=== PATIENT | female | born 1950 | race Caucasian/White ===

== ENCOUNTER 2023-09-07 16:45 | Inpatient (IN) | payer OTHER ==
[~2023-09-07] VITALS: Ht 160 cm; Wt 75.7 kg
[2023-09-07 16:52] VITALS: BP 118/51; PULSE 106; RESP 18; TEMP 98; O2SAT 97
[2023-09-07] MEDS: NACL 0.9% 1,000 ML IV SCH ×2 (17:48→20:00)
[2023-09-07 17:53] LABS: BASOPHILS % (AUTO) 0.4 % (0.0-2.0); EOSINOPHILS % (AUTO) 0.1 % (0.0-4.0); HEMATOCRIT 32.9 % (36-48); HEMOGLOBIN 11.5 g/dL (12.0-16.0); LYMPHOCYTES % (AUTO) 8.3 % (20.5-51.1); MEAN CORPUSCULAR HEMOGLOBIN 31 pg (27-31); MEAN CORPUSCULAR HGB CONC 35 g/dL (33-37); MONOCYTES # (AUTO) 1.2 K/uL (0.8-1.0); MONOCYTES % (AUTO) 9.8 % (1.7-9.3); NEUTROPHILS % (AUTO) 81.4 % (42.2-75.2); PLATELET COUNT (AUTO) 165 K/uL (140-450); RED BLOOD CELL COUNT(AUTO) 3.74 MIL/uL (4.20-5.40); RED CELL DISTRIBUTION WIDTH 12.7 % (11.6-13.7); WHITE BLOOD COUNT (AUTO) 12.2 K/uL (4.8-10.8)
[2023-09-07 18:04] LABS: CALCIUM 8.8 mg/dL (8.5-10.1); CARBON DIOXIDE 26.6 mmol/L (21-32); CHLORIDE 82 mmol/L (98-107); CREATININE 1.3 mg/dL (0.6-1.3); GLUCOSE 236 mg/dL (74-106); UREA NITROGEN, BLOOD 21 mg/dL (7-18)
[2023-09-07 18:06] LABS: POTASSIUM 2.6 mmol/L (3.5-5.1); SODIUM SERUM 119 mmol/L (136-145)
[2023-09-07] MEDS: KETOROLAC 30 MG/ML VIAL IVP ONE (18:29)
[2023-09-07] MEDS: POTASSIUM CHLORIDE 10 MEQ TABER PO ONE (18:48)
[2023-09-07 19:08] LABS: APPEARANCE,URINE CLEAR (CLEAR); BILIRUBIN,URINE NEGATIVE (NEGATIVE); BLOOD, URINE 2+ (NEGATIVE); COLOR,URINE YELLOW (YELLOW); LEUKOCYTE ESTERASE ,URINE 1+ (NEGATIVE); NITRITE, URINE NEGATIVE (NEGATIVE); PROTEIN,URINE TRACE (NEGATIVE); UGLUCOSE 1+ (NEGATIVE); UROBILINOGEN,URINE 0.2 EU/dL (0.2 - 1)
[2023-09-07 19:14] LABS: BACTERIA,URINE >30 (MANY) /HPF (None Seen); RBC,URINE 0-5 /HPF (0-5); WBC,URINE >25 (MANY) /HPF (0-5)
[2023-09-07 19:15] LABS: MUCUS,URINE None Seen /LPF (None Seen); SQUAMOUS EPITHELIAL CELL,UR 4-10 (MOD) /LPF (0-3 (FEW))
[2023-09-07] MEDS ORDERED: MAG SULF 2000 MG/WATER PREMIX 50 ML IV PRN (19:45)
[2023-09-07] MEDS ORDERED: MELATONIN 3 MG TAB PO PRN (19:45)
[2023-09-07] MEDS ORDERED: MORPHINE SULFATE 2 MG/ML SYR IVP PRN (19:45)
[2023-09-07] MEDS ORDERED: POLYETHYLENE GLYCOL 17 GM/PKT PO PRN (19:45)
[2023-09-07] MEDS ORDERED: DEXTROSE 50% 50 ML SYR IVP PRN (19:50)
[2023-09-07] MEDS: LEVOFLOXACIN 250 MG/D5 PREMIX 50 ML IV SCH (20:50)
[2023-09-07] MEDS ORDERED: GABA100C PO (21:13)
[2023-09-07] MEDS ORDERED: AMLO2.5T PO (21:13)
[2023-09-07] MEDS ORDERED: METF-350 PO (21:13)
[2023-09-07] MEDS ORDERED: GLIP10TE PO (21:13)
[2023-09-07] MEDS ORDERED: SIMV-372 PO (21:13)
[2023-09-07] MEDS: BLOOD GLUCOSE MONITORING 1 DEV DEV FS SCH (21:15)
[2023-09-07] MEDS: INSULIN LISPRO SLIDING SCALE 100 UNITS/ML VIAL SUBQ PRN (21:20)
[2023-09-07 21:45] VITALS: BP 125/75; PULSE 75; RESP 18; TEMP 98.1; O2SAT 96; O2SAT 97
[2023-09-08] VITALS (7 sets, daily range): BP systolic 101–135; BP diastolic 50–64; PULSE 72–97; RESP 18–21; TEMP 98–99.8; O2SAT 96–98
[2023-09-08 05:48] LABS: BASOPHILS # (AUTO) 0.1 K/uL (0.00-0.22); BASOPHILS % (AUTO) 1.2 % (0.0-2.0); EOSINOPHILS % (AUTO) 0.2 % (0.0-4.0); HEMATOCRIT 31.7 % (36-48); HEMOGLOBIN 11.2 g/dL (12.0-16.0); LYMPHOCYTES # (AUTO) 0.9 K/uL (2.5-16.5); LYMPHOCYTES % (AUTO) 8.6 % (20.5-51.1); MEAN CORPUSCULAR HEMOGLOBIN 31 pg (27-31); MEAN CORPUSCULAR HGB CONC 35 g/dL (33-37); MONOCYTES # (AUTO) 0.9 K/uL (0.8-1.0); MONOCYTES % (AUTO) 9.1 % (1.7-9.3); NEUTROPHILS # (AUTO) 8.4 K/uL (1.8-7.7); NEUTROPHILS % (AUTO) 80.9 % (42.2-75.2); PLATELET COUNT (AUTO) 164 K/uL (140-450); RED CELL DISTRIBUTION WIDTH 12.8 % (11.6-13.7); WHITE BLOOD COUNT (AUTO) 10.4 K/uL (4.8-10.8)
[2023-09-08 06:05] LABS: ALANINE AMINOTRANSFERASE 34 U/L (12-78); ALBUMIN 2.8 g/dL (3.4-5.0); ALKALINE PHOSPHATASE 59 U/L (50-136); ANION GAP 12.4 (8-16); ASPARTATE AMINOTRANSFERASE 49 U/L (15-37); CALCIUM 8.3 mg/dL (8.5-10.1); CARBON DIOXIDE 26.4 mmol/L (21-32); CHLORIDE 89 mmol/L (98-107); CREATININE 1.1 mg/dL (0.6-1.3); GLUCOSE 189 mg/dL (74-106); MAGNESIUM 1.8 mg/dL (1.8-2.4); PHOSPHORUS 1.8 mg/dL (2.5-4.9); SODIUM SERUM 125 mmol/L (136-145); TOTAL BILIRUBIN 0.5 mg/dL (0.0-1.0); TOTAL PROTEIN, SERUM 6.6 g/dL (6.4-8.2); UREA NITROGEN, BLOOD 16 mg/dL (7-18)
[2023-09-08 06:15] LABS: POTASSIUM 2.8 mmol/L (3.5-5.1)
[2023-09-08] MEDS: ONDANSETRON 4 MG/2 ML VIAL IVP PRN (06:21)
[2023-09-08] MEDS: ACETAMINOPHEN 325 MG TAB PO PRN (06:21)
[2023-09-08] MEDS: KCL 20 MEQ IN 100 mL PREMIX 200 ML IV PRN (06:59)
[2023-09-08] MEDS: POTASSIUM CHLORIDE 10 MEQ TABER PO SCH (14:12)
[2023-09-08 16:46] LABS: ALANINE AMINOTRANSFERASE 36 U/L (12-78); ALBUMIN 2.8 g/dL (3.4-5.0); ALKALINE PHOSPHATASE 67 U/L (50-136); ANION GAP 12.5 (8-16); ASPARTATE AMINOTRANSFERASE 45 U/L (15-37); CALCIUM 8.5 mg/dL (8.5-10.1); CARBON DIOXIDE 27.1 mmol/L (21-32); CHLORIDE 91 mmol/L (98-107); CREATININE 0.9 mg/dL (0.6-1.3); GLUCOSE 188 mg/dL (74-106); POTASSIUM 3.6 mmol/L (3.5-5.1); SODIUM SERUM 127 mmol/L (136-145); THYROID STIMULATING HORMONE 0.91 uIU/mL (0.34-3.74); TOTAL BILIRUBIN 0.5 mg/dL (0.0-1.0); TOTAL PROTEIN, SERUM 6.7 g/dL (6.4-8.2); UREA NITROGEN, BLOOD 10 mg/dL (7-18)
[2023-09-08] MEDS: POTASSIUM PHOSPHATE 15 MM in NACL 0.9% 250 ML IV SCH (17:07)
[2023-09-08] MEDS ORDERED: DEXTROSE 5% 1,000 ML IV SCH (19:45)
[2023-09-08] MEDS: DEXTROSE 5% 500 ML IV SCH (20:34)
[2023-09-08] MEDS: SIMVASTATIN 20 MG TAB PO SCH (20:52)
[2023-09-08 22:35] LABS: CARBON DIOXIDE 30.5 mmol/L (21-32); CHLORIDE 93 mmol/L (98-107); GLUCOSE 232 mg/dL (74-106); POTASSIUM 3.5 mmol/L (3.5-5.1); SODIUM SERUM 128 mmol/L (136-145); UREA NITROGEN, BLOOD 9 mg/dL (7-18)
[2023-09-09] VITALS: BP 95/65; PULSE 88; PULSE 98; RESP 19; TEMP 98.6; O2SAT 96
[2023-09-09 04:00] VITALS: BP 105/55; PULSE 86; PULSE 88; RESP 19; TEMP 98.7; O2SAT 96
[2023-09-09] MEDS ORDERED: VANCOMYCIN PER PHARMACY MC PRN (06:50)
[2023-09-09 07:59] VITALS: PULSE 89
[2023-09-09 08:00] VITALS: BP 122/70; PULSE 82; RESP 18; TEMP 98.2; O2SAT 97
[2023-09-09 08:45] LABS: BASOPHILS % (AUTO) 0.3 % (0.0-2.0); EOSINOPHILS % (AUTO) 0.4 % (0.0-4.0); HEMATOCRIT 32.1 % (36-48); HEMOGLOBIN 11.3 g/dL (12.0-16.0); LYMPHOCYTES # (AUTO) 1.3 K/uL (2.5-16.5); LYMPHOCYTES % (AUTO) 14.2 % (20.5-51.1); MEAN CORPUSCULAR HEMOGLOBIN 31 pg (27-31); MEAN CORPUSCULAR HGB CONC 35 g/dL (33-37); MEAN CORPUSCULAR VOLUME 88.1 fL (80-94); MONOCYTES # (AUTO) 1.2 K/uL (0.8-1.0); MONOCYTES % (AUTO) 13.5 % (1.7-9.3); NEUTROPHILS # (AUTO) 6.6 K/uL (1.8-7.7); NEUTROPHILS % (AUTO) 71.6 % (42.2-75.2); PLATELET COUNT (AUTO) 191 K/uL (140-450); RED BLOOD CELL COUNT(AUTO) 3.64 MIL/uL (4.20-5.40); RED CELL DISTRIBUTION WIDTH 12.8 % (11.6-13.7); WHITE BLOOD COUNT (AUTO) 9.2 K/uL (4.8-10.8)
[2023-09-09 08:59] LABS: ALANINE AMINOTRANSFERASE 37 U/L (12-78); ALBUMIN 2.6 g/dL (3.4-5.0); ALKALINE PHOSPHATASE 63 U/L (50-136); ANION GAP 8.3 (8-16); ASPARTATE AMINOTRANSFERASE 39 U/L (15-37); CALCIUM 8.9 mg/dL (8.5-10.1); CARBON DIOXIDE 29.9 mmol/L (21-32); CHLORIDE 95 mmol/L (98-107); CREATININE 0.9 mg/dL (0.6-1.3); GLUCOSE 196 mg/dL (74-106); MAGNESIUM 1.9 mg/dL (1.8-2.4); PHOSPHORUS 1.9 mg/dL (2.5-4.9); POTASSIUM 3.2 mmol/L (3.5-5.1); SODIUM SERUM 130 mmol/L (136-145); TOTAL BILIRUBIN 0.4 mg/dL (0.0-1.0); TOTAL PROTEIN, SERUM 6.5 g/dL (6.4-8.2); UREA NITROGEN, BLOOD 9 mg/dL (7-18)
[2023-09-09] MEDS: VANCOMYCIN 1,000 MG in DEXTROSE 5% 250 ML IV SCH (09:01)
[2023-09-09] MEDS: KCL 20 MEQ IN 100 mL PREMIX 100 ML IV SCH (10:49)
[2023-09-09 12:00] VITALS: BP 120/60; PULSE 84; RESP 18; TEMP 98.3; O2SAT 97
[2023-09-09] MEDS: amLODIPine 5 MG TAB PO SCH (13:22)
[2023-09-09] MEDS: POTASSIUM PHOSPHATE 15 MM in NACL 0.9% 250 ML IV SCH (15:00)
[2023-09-09 20:00] VITALS: BP 116/73; PULSE 74; PULSE 82; RESP 18; TEMP 98.4; O2SAT 96
[2023-09-10 04:00] VITALS: BP 121/67; PULSE 72; RESP 17; TEMP 98.4; O2SAT 97
[2023-09-10 06:15] LABS: BASOPHILS # (AUTO) 0.1 K/uL (0.00-0.22); BASOPHILS % (AUTO) 0.6 % (0.0-2.0); EOSINOPHILS # (AUTO) 0.1 K/uL (0-0.4); EOSINOPHILS % (AUTO) 1.4 % (0.0-4.0); HEMATOCRIT 32.9 % (36-48); HEMOGLOBIN 11.6 g/dL (12.0-16.0); LYMPHOCYTES # (AUTO) 1.9 K/uL (2.5-16.5); LYMPHOCYTES % (AUTO) 20.9 % (20.5-51.1); MEAN CORPUSCULAR HEMOGLOBIN 31 pg (27-31); MEAN CORPUSCULAR HGB CONC 35 g/dL (33-37); MEAN CORPUSCULAR VOLUME 88.3 fL (80-94); NEUTROPHILS % (AUTO) 66.1 % (42.2-75.2); PLATELET COUNT (AUTO) 217 K/uL (140-450); RED BLOOD CELL COUNT(AUTO) 3.73 MIL/uL (4.20-5.40); WHITE BLOOD COUNT (AUTO) 9.1 K/uL (4.8-10.8)
[2023-09-10 06:16] LABS: ALANINE AMINOTRANSFERASE 43 U/L (12-78); ALBUMIN 2.6 g/dL (3.4-5.0); ALKALINE PHOSPHATASE 65 U/L (50-136); ASPARTATE AMINOTRANSFERASE 32 U/L (15-37); CARBON DIOXIDE 28.5 mmol/L (21-32); CHLORIDE 96 mmol/L (98-107); CREATININE 0.8 mg/dL (0.6-1.3); GLUCOSE 189 mg/dL (74-106); MAGNESIUM 1.6 mg/dL (1.8-2.4); PHOSPHORUS 3.3 mg/dL (2.5-4.9); POTASSIUM 3.5 mmol/L (3.5-5.1); SODIUM SERUM 132 mmol/L (136-145); TOTAL BILIRUBIN 0.4 mg/dL (0.0-1.0); TOTAL PROTEIN, SERUM 6.6 g/dL (6.4-8.2); UREA NITROGEN, BLOOD 11 mg/dL (7-18)
[2023-09-10 08:00] VITALS: BP 136/68; PULSE 107; PULSE 64; RESP 18; TEMP 97.3; O2SAT 93; O2SAT 98
[2023-09-10 12:00] VITALS: BP 137/77; PULSE 91; RESP 16; TEMP 98.6; O2SAT 99
[2023-09-10 16:00] VITALS: BP 127/71; PULSE 79; RESP 19; TEMP 98.9; O2SAT 96
[2023-09-10 20:21] VITALS: PULSE 80; RESP 17; O2SAT 96
[2023-09-10 20:25] VITALS: PULSE 80
[2023-09-10] MEDS: MAGNESIUM OXIDE 400 MG TAB PO SCH (22:12)
[2023-09-11 05:32] VITALS: BP 130/77; PULSE 78; RESP 18; TEMP 98.5; O2SAT 96
[2023-09-11 05:38] LABS: BASOPHILS % (AUTO) 0.4 % (0.0-2.0); EOSINOPHILS # (AUTO) 0.2 K/uL (0-0.4); EOSINOPHILS % (AUTO) 1.9 % (0.0-4.0); HEMATOCRIT 33.2 % (36-48); HEMOGLOBIN 11.5 g/dL (12.0-16.0); LYMPHOCYTES # (AUTO) 2.4 K/uL (2.5-16.5); LYMPHOCYTES % (AUTO) 28.2 % (20.5-51.1); MEAN CORPUSCULAR HEMOGLOBIN 31 pg (27-31); MEAN CORPUSCULAR HGB CONC 35 g/dL (33-37); MEAN CORPUSCULAR VOLUME 88.7 fL (80-94); MONOCYTES # (AUTO) 0.9 K/uL (0.8-1.0); MONOCYTES % (AUTO) 10.6 % (1.7-9.3); NEUTROPHILS # (AUTO) 5.1 K/uL (1.8-7.7); NEUTROPHILS % (AUTO) 58.9 % (42.2-75.2); PLATELET COUNT (AUTO) 243 K/uL (140-450); RED BLOOD CELL COUNT(AUTO) 3.75 MIL/uL (4.20-5.40); RED CELL DISTRIBUTION WIDTH 13.1 % (11.6-13.7); WHITE BLOOD COUNT (AUTO) 8.7 K/uL (4.8-10.8)
[2023-09-11 07:03] LABS: ALANINE AMINOTRANSFERASE 40 U/L (12-78); ALKALINE PHOSPHATASE 61 U/L (50-136); ANION GAP 11.1 (8-16); ASPARTATE AMINOTRANSFERASE 27 U/L (15-37); CALCIUM 9.1 mg/dL (8.5-10.1); CARBON DIOXIDE 30.3 mmol/L (21-32); CHLORIDE 99 mmol/L (98-107); CREATININE 0.8 mg/dL (0.6-1.3); GLUCOSE 153 mg/dL (74-106); POTASSIUM 3.4 mmol/L (3.5-5.1); SODIUM SERUM 137 mmol/L (136-145); TOTAL BILIRUBIN 0.3 mg/dL (0.0-1.0); UREA NITROGEN, BLOOD 9 mg/dL (7-18)
[2023-09-11 07:04] LABS: ALBUMIN 2.6 g/dL (3.4-5.0); MAGNESIUM 1.6 mg/dL (1.8-2.4); TOTAL PROTEIN, SERUM 6.5 g/dL (6.4-8.2)
[2023-09-11 08:00] VITALS: PULSE 64; RESP 18; TEMP 98; O2SAT 93
[2023-09-11] MEDS: HYDROcodone/APAP 5/325 MG 1 TAB TAB PO PRN (09:13)
[2023-09-11] MEDS: POTASSIUM CHLORIDE 10 MEQ TABER PO ONE (09:32)
[2023-09-11 12:00] VITALS: BP 130/68; PULSE 85; RESP 20; TEMP 98.2; O2SAT 96
[2023-09-11 15:45] VITALS: BP 126/74; PULSE 82; RESP 17; TEMP 98
== END 2023-09-11 16:30 | disposition home or self-care (01) | DRG 872 ==
LOC: MED 16:45 → MTU 19:48
PROVIDERS: ADMIT Family Medicine; ATTEND Family Medicine
DX: A41.9 Sepsis, unspecified organism (principal); N39.0 Urinary tract infection, site not specified; E87.1 Hypo-osmolality and hyponatremia; E87.6 Hypokalemia; B96.20 Unspecified Escherichia coli [E. coli] as the cause of diseases classified elsewhere; I10 Essential (primary) hypertension; E78.5 Hyperlipidemia, unspecified; E83.39 Other disorders of phosphorus metabolism; E11.9 Type 2 diabetes mellitus without complications; Z88.0 Allergy status to penicillin; Z90.49 Acquired absence of other specified parts of digestive tract
CPT/HCPCS: 36415; 71045; 76770; 80048; 80053; 81001; 82533; 82948; 83735; 83930; 83935; 84100; 84295; 84300; 84443; 84484; 85025; 86886; 86900; 86901; 87040; 87081; 87086; 87186; 96361; 96374; 96375; 97116; 97163-GP; 99285; J1815; J1885; J1956; J2405; J3370; J3480; J7030; J7060; Q0092